=== PATIENT | male | born 1955 | race Caucasian/White ===

== ENCOUNTER 2016-10-04 13:13 | Day surgery (SDC) | payer OTHER ==
[~2016-10-04] VITALS: Ht 177.8 cm; Wt 79.7 kg
[~2016-10-04 13:13] MED LIST: No meds per pt.
[2016-10-04] MEDS ORDERED: BUPIVACAINE/PF-EPI 0.5% 1:200K ONE (14:09)
[2016-10-04] MEDS ORDERED: LACTATED RINGERS 1,000 ML IV SCH (14:28)
[2016-10-04 14:47] VITALS: BP 132/82
[2016-10-04] MEDS ORDERED: MIDAZOLAM 1 MG/ML, 2ML ONE ×2 (15:56→15:57)
[2016-10-04] MEDS ORDERED: FENTANYL PF 250 MCG/5ML ONE ×2 (15:57)
[2016-10-04] MEDS ORDERED: CEFOTETAN 2 GM ONE (16:05)
[2016-10-04] MEDS ORDERED: PROPOFOL 10 MG/ML, 20ML ONE (16:05)
[2016-10-04] MEDS ORDERED: ROCURONIUM 10 MG/ML ONE (16:05)
[2016-10-04] MEDS ORDERED: ONDANSETRON 2MG/ML, 2ML ONE (16:05)
[2016-10-04] MEDS ORDERED: MEPERIDINE/PF 25MG/0.5ML IVPush PRN (16:30)
[2016-10-04] MEDS ORDERED: HYDROmorphone 1 MG/ML, 1ML IV PRN (16:30)
[2016-10-04] MEDS ORDERED: hydrALAzine 20 MG/ML, 1ML IV PRN (16:30)
[2016-10-04] MEDS ORDERED: OXYcodone 5 MG/5 ML ORAL.SOL UDC PO PRN (16:30)
[2016-10-04] MEDS ORDERED: ACETAMINOPHEN 325 MG TABLET PO PRN (16:30)
[2016-10-04] MEDS ORDERED: FENTANYL PF 100 MCG/2ML IV PRN (16:30)
[2016-10-04] MEDS ORDERED: PROMETHAZINE 25 MG/ML, 1ML IV PRN (16:30)
[2016-10-04] MEDS ORDERED: LABETALOL 5MG/ML, 20ML IV PRN (16:30)
[2016-10-04] MEDS ORDERED: ONDANSETRON 2MG/ML, 2ML IVPush PRN (16:30)
[2016-10-04] MEDS ORDERED: MIDAZOLAM 1 MG/ML, 2ML IV PRN (16:30)
[2016-10-04] MEDS ORDERED: FENTANYL PF 100 MCG/2ML ONE (17:40)
== END 2016-10-04 19:45 ==
LOC: OUT 13:13
PROVIDERS: ATTEND Surgery
DX: K40.90 Unilateral inguinal hernia, without obstruction or gangrene, not specified as recurrent (principal)
CPT/HCPCS: 49650; J3010; J7120; S2900; J2250; J2405; J2704; C1781; S0074